=== PATIENT | female | born 1975 | race Caucasian/White ===

== ENCOUNTER 2020-11-21 18:28 | Emergency (ER) | payer SELFPAY ==
[~2020-11-21] VITALS: Ht 162.6 cm; Wt 118.0 kg
[2020-11-21] MEDS ORDERED: NITROGLYCERIN SUBLINGUAL 0.4 MG BOTTLE OF 25. SL PRN (18:45)
[2020-11-21 18:59] LABS: BASO # 0.1 x10^3/uL (0.0-0.2); BASO % 1 % (0-3); EOS # 0.5 x10^3/uL (0.0-0.7); EOS % 5 % (0-3); HEMATOCRIT 31.4 % (36.0-47.0); HEMOGLOBIN 10.3 g/dL (12.0-15.5); LYMPH # 2.7 x10^3/uL (1.0-4.8); LYMPH % 26 % (24-48); MEAN CORPUSCULAR HEMOGLOBIN 21 pg (25-35); MEAN CORPUSCULAR HGB CONC 33 g/dL (31-37); MEAN CORPUSCULAR VOLUME 65 fL (79-100); MONO # 0.7 x10^3/uL (0.0-1.1); MONO % 7 % (0-9); NEUT # 6.4 x10^3/uL (1.8-7.7); NEUT % 61 % (31-73); PLATELET COUNT 483 x10^3/uL (140-400); RED BLOOD COUNT 4.82 x10^6/uL (3.50-5.40); RED CELL DISTRIBUTION WIDTH 18.7 % (11.5-14.5); WHITE BLOOD COUNT 10.5 x10^3/uL (4.0-11.0)
--- NOTE | 2020-11-21 19:05 | PHYS DOC ---
Past Medical History Past Medical History: Hypertension (DEISY KANG SALES AND LEASING AGENT) Past Surgical History: (DEISY KANG SALES AND LEASING AGENT) General Adult EDM: Chief Complaint: HYPERTENSION HPI: HPI: Patient is a 45 year old female with a history of asthma who presents to the ED today complaining of elevated blood pressure, headache, chest pain, symptoms of been going on for 2 to 3 days. Patient describes the chest pain described as "discomfort" rates the pain at 6/10, denies anything specifically exacerbating or relieving her pain. Patient unable to to state which side of the chest is hurting. Patient states she took her friends 50 mg metoprolol around noon, she states her blood pressure did not come down she repeated another dose a couple minutes later. Patient denies this being the worst headache in her life. Denies any nausea, vomiting. She states she has some shortness of breath. Patient reports being a current smoker. She states she had Covid in August 2020 (DEISY KANG SALES AND LEASING AGENT) Review of Systems: Review of Systems: Constitutional: Denies fever or chills. [] Eyes: Denies change in visual acuity. [] HENT: Denies nasal congestion or sore throat. [] Respiratory: Reports shortness of breath, denies coughing Cardiovascular: Denies chest pain or edema. [] GI: Denies abdominal pain, nausea, vomiting, bloody stools or diarrhea. [] : Denies dysuria. [] Musculoskeletal: Denies back pain or joint pain. [] Integument: Denies rash. [] Neurologic: Reports headache, denies reports elevated blood pressure. Focal weakness or sensory changes. [] Psychiatric: Denies depression or anxiety. [] (DEISY KANG SALES AND LEASING AGENT) Heart Score: C/O Chest Pain: Yes HEART Score for Chest Pain: HEART Score for Chest Pain Response (Comments) Value History Slighlty/Non-Suspicious 0 ECG Normal 0 Risk Factors 1 or 2 Risk Factors 1 Troponin < Normal Limit 0 Total 1 Risk Factors: Risk Factors: DM, Current or recent (<one month) smoker, HTN, HLP, family history of CAD, obesity. Risk Scores: Score 0 - 3: 2.5% MACE over next 6 weeks - Discharge Home Score 4 - 6: 20.3% MACE over next 6 weeks - Admit for Clinical Observation Score 7 - 10: 72.7% MACE over next 6 weeks - Early Invasive Strategies (DEISY KANG Thomas SALES AND LEASING AGENT) Current Medications: Current Medications Medications (Trade) Dose Ordered Sig/Lavern Start Time Stop Time Status Last Admin Dose Admin Acetaminophen (Tylenol) 1,000 mg 1X ONCE 11/21/20 18:45 11/21/20 18:46 UNV Aspirin (Byron Aspirin) 325 mg 1X ONCE 11/21/20 18:45 11/21/20 18:46 UNV Clonidine HCl (Catapres) 0.2 mg 1X ONCE 11/21/20 18:45 11/21/20 18:46 UNV Nitroglycerin (Nitrostat) 0.4 mg PRN Q5MIN PRN 11/21/20 18:45 11/22/20 18:44 UNV (DEISY KANG SALES AND LEASING AGENT) Allergies: Allergies: Allergies Coded Allergies Type Severity Reaction Last Updated Verified No Known Drug Allergies 11/21/20 No (DEISY KANG SALES AND LEASING AGENT) Physical Exam: PE: Constitutional: Well developed, well nourished, no acute distress, non-toxic appearance. [] HENT: Normocephalic, atraumatic, bilateral external ears normal, oropharynx moist, no oral exudates, nose normal. [] Eyes: PERRLA, EOMI, conjunctiva normal, no discharge. [] Neck: Normal range of motion, no tenderness, supple, no stridor. [] Cardiovascular:Heart rate regular rhythm, no murmur [] Lungs & Thorax: Bilateral breath sounds clear to auscultation [] Abdomen: Bowel sounds normal, soft, no tenderness, no masses, no pulsatile masses. [] Skin: Warm, dry, no erythema, no rash. [] Back: No tenderness, no CVA tenderness. [] Extremities: No tenderness, no cyanosis, no clubbing, ROM intact, no edema. [] Neurologic: Alert and oriented X 3, normal motor function, normal sensory functi on, no focal deficits noted. Cranial nerves II through XII intact Psychologic: Affect normal, judgement normal, mood normal. [] (DEISY KANG SALES AND LEASING AGENT) Current Patient Data: Labs: Laboratory Tests Test 11/21/20 18:45 White Blood Count 10.5 x10^3/uL (4.0-11.0) Red Blood Count 4.82 x10^6/uL (3.50-5.40) Hemoglobin 10.3 g/dL (12.0-15.5) L Hematocrit 31.4 % (36.0-47.0) L Mean Corpuscular Volume 65 fL (79-100) L Mean Corpuscular Hemoglobin 21 pg (25-35) L Mean Corpuscular Hemoglobin Concent 33 g/dL (31-37) Red Cell Distribution Width 18.7 % (11.5-14.5) H Platelet Count 483 x10^3/uL (140-400) H Neutrophils (%) (Auto) 61 % (31-73) Lymphocytes (%) (Auto) 26 % (24-48) Monocytes (%) (Auto) 7 % (0-9) Eosinophils (%) (Auto) 5 % (0-3) H Basophils (%) (Auto) 1 % (0-3) Neutrophils # (Auto) 6.4 x10^3/uL (1.8-7.7) Lymphocytes # (Auto) 2.7 x10^3/uL (1.0-4.8) Monocytes # (Auto) 0.7 x10^3/uL (0.0-1.1) Eosinophils # (Auto) 0.5 x10^3/uL (0.0-0.7) Basophils # (Auto) 0.1 x10^3/uL (0.0-0.2) Laboratory Tests 11/21/20 18:45 Vital Signs: Vital Signs Date Time Temp Pulse Resp B/P (MAP) Pulse Ox O2 Delivery O2 Flow Rate FiO2 11/21/20 18:30 98.6 83 20 190/82 99 Room Air 98.6 (DEISY KANG SALES AND LEASING AGENT) EKG: EK interpreted by Dr. Ross sinus rhythm heart rate 85 no STEMI [] (DEISY KANG [facility]) Radiology/Procedures: Radiology/Procedures: []PROCEDURE: CT HEAD WO CONTRAST Exam Date: 11/21/2020 7:[address] HEAD/BRAIN WO Indication: Reason: head, elevated bp / Spl. Instructions: / History: . TECHNIQUE: Head CT was performed without intravenous contrast. One or more of the following dose reduction techniques were utilized: *Automated exposure control (AEC) *Adjustment of mA and/or kV according to patient size *Use of iterative reconstruction technique *CT scan done according to ALARA, or ALARA/IMAGE GENTLY FINDINGS: The ventricles and sulci are normal for the patient's stated age. There is no evidence of acute intracranial hemorrhage, extra-axial collection, mass effect, midline shift, or acute territorial infarct. No lesion of the skull base or the calvarium is seen. The visualized paranasal sinuses, mastoid air cells and orbits are normal in appearance. IMPRESSION: No evidence for acute intracranial abnormality. Electronically signed by: Donald Diaz MD (11/21/2020 7:17 PM) [facility] DICTATED and SIGNED BY: DONALD DIAZ MD DATE: 11/21/[id number] 0 PROCEDURE: PORTABLE CHEST 1V Exam: Chest one view INDICATION: Hypertension TECHNIQUE: Frontal view of the chest Comparisons: None FINDINGS: Heart is mildly enlarged. Pulmonary vessels are within normal limits. The lung and pleural spaces are clear. IMPRESSION: No acute cardiopulmonary process. Electronically signed by: Izzy Paul MD (11/21/2020 7:13 PM) [facility] DICTATED and SIGNED BY: IZZY PAUL MD DATE: 11/21/[id number] 0 (DEISY KANG APRN) Course & Med Decision Making: Course & Med Decision Making Pertinent Labs and Imaging studies reviewed. (See chart for details) This is a 45-year-old female patient presenting today complaining of elevated blood pressure, headache, shortness of breath, chest pain, symptoms for 2 to 3 days. Blood pressure on arrival to the ED is 190/82 with a heart rate in the 80s. O2 sats 99% on room air. CBC with no acute findings, CMP with normal creatinine, normal BUN otherwise nothing really acute. Chest x-ray is negative, EKG is negative. Urine analysis negative for protein, urine contaminated with squamous cells epithelium Patient was given clonidine on arrival to the ED, blood pressure has come down to 132/63 with a heart rate of 71. Patient desires to go home, she states she has no medical insurance to be in the hospital. Spoke with Dr. Shepherd She was discharged to home with amlodipine. She will follow-up with [facility] and through the clinic by her choice (DEISY KANG APRN) Chaz Disclaimer: Chaz Disclaimer: This electronic medical record was generated, in whole or in part, using a voice recognition dictation system. (DEISY KANG APRN) Departure Departure Impression: Primary Impression: Hypertension Qualified Codes: I10 - Essential (primary) hypertension Disposition: HOME / SELF CARE / HOMELESS Condition: STABLE Patient Instructions: Hypertension Additional Instructions: You were evaluated in the emergency room for high blood pressure. We started you on blood pressure medicines. Take them as prescribed. Try to exercise and lose weight. Take Tylenol as needed for headaches. Watch what you eat, avoid salty foods, fatty foods, fried foods. Consider a going on a DASH diet. Follow-up with [facility] [id number] Scripts Amlodipine Besylate (AMLODIPINE BESYLATE) 10 Mg Tablet 10 MG PO DAILY, #30 TAB Prov: DEISY KANG APRN 11/21/20 Attending Signature Attending Signature I have reviewed the PA/LEARNING AND DEVELOPMENT SPECIALIST's note and plan of care. I was available for consultation as needed during the patient's visit in the emergency department. I agree with the clinical impression, plan, and disposition. (ANDRES ROSS DO) DEISY KANG APRN Nov 21, 2020 19:05 ANDRES ROSS DO Nov 21, 2020 22:18
[2020-11-21 19:10] LABS: CALCIUM 8.2 mg/dL (8.5-10.1); GFR 60.5; POTASSIUM 4.1 mmol/L (3.5-5.1)
[2020-11-21] MEDS ORDERED: ACETAMINOPHEN 500 MG TABLET PO ONE (19:15)
[2020-11-21] MEDS ORDERED: ASPIRIN 325 MG TABLET PO ONE (19:15)
[2020-11-21] MEDS ORDERED: cloNIDine HCL 0.1 MG TABLET PO ONE (19:15)
--- NOTE | 2020-11-21 19:15 | RAD ---
Exam: Chest one view INDICATION: Hypertension TECHNIQUE: Frontal view of the chest Comparisons: None FINDINGS: Heart is mildly enlarged. Pulmonary vessels are within normal limits. The lung and pleural spaces are clear. IMPRESSION: No acute cardiopulmonary process. Electronically signed by: Izzy Parra MD (11/21/2020 7:13 PM) [place]
[2020-11-21 19:16] LABS: ALBUMIN 3.2 g/dL (3.4-5.0); ALBUMIN/GLOBULIN RATIO 0.8 (1.0-1.7); TOTAL BILIRUBIN 0.2 mg/dL (0.2-1.0); TOTAL PROTEIN 7.1 g/dL (6.4-8.2)
--- NOTE | 2020-11-21 19:19 | RAD ---
Exam Date: 11/21/2020 7:[address] HEAD/BRAIN WO Indication: Reason: head, elevated bp / Spl. Instructions: / History: . TECHNIQUE: Head CT was performed without intravenous contrast. One or more of the following dose re duction techniques were utilized: *Automated exposure control (AEC) *Adjustment of mA and/or kV according to patient size *Use of iterative reconstruction technique *CT scan done according to ALARA, or ALARA/IMAGE GENTLY FINDINGS: The ventricles and sulci are normal for the patient's stated age. There is no evidence of acute int racranial hemorrhage, extra-axial collection, mass effect, midline shift, or acute territorial infarc t. No lesion of the skull base or the calvarium is seen. The visualized paranasal sinuses, mastoid ai r cells and orbits are normal in appearance. IMPRESSION: No evidence for acute intracranial abnormality. Electronically signed by: Ruben Diaz MD (11/21/2020 7:17 PM) [facility]
[2020-11-21 19:29] LABS: PLT ESTIMATE INCREASED (ADEQUATE)
[2020-11-21 19:30] LABS: HYPOCHROMIA MOD; MICROCYTOSIS MARKED; POLYCHROMASIA SLIGHT
[2020-11-21 19:37] LABS: BILIRUBIN,URINE NEGATIVE (NEG); CLARITY,URINE CLEAR; COLOR,URINE YELLOW; NITRITE,URINE NEGATIVE (NEG); PH,URINE 7.5 (<5.0-8.0); PROTEIN,URINE NEGATIVE (NEG-TRACE); UROBILINOGEN,URINE 0.2 mg/dL (0.2 mg/dL)
[2020-11-21 19:45] LABS: BARBITURATES NEG (NEG); BENZODIAZEPINES NEG (NEG); CANNABINOIDS NEG (NEG); COCAINE NEG (NEG); METHADONE NEG (NEG); OPIATES NEG (NEG); PHENCYCLIDINE NEG (NEG)
[2020-11-21 19:48] LABS: AMPHETAMINE/METHAMPHETAMINE NEG (NEG)
[2020-11-21 19:50] LABS: BACTERIA,URINE FEW /HPF (0-FEW); RBC,URINE 0 /HPF (0-2)
[2020-11-21 20:31] VITALS: BP 133/63
[2020-11-21] MEDS ORDERED: AMLO-187 PO (20:41)
--- NOTE | 2020-11-23 00:51 | EKG ---
[facility] [address] [place] [address] Test Date: 2020-11-21 Test Time: 18:37:04 Pat Name: TONY SWEET Department: Room: Gender: F Bracelet And Brooch Maker: : 1975 Requested By: DEISY KANG Order Number: [id number] Reading MD: Measurements Intervals [place] Rate: 85 P: 63 [place]: 172 QRS: -21 QRSD: 82 T: 97 QT: 386 QTc: 460 Interpretive Statements SINUS RHYTHM LEFT ATRIAL ABNORMALITY LEFTWARD AXIS T ABNORMALITY IN HIGH LATERAL LEADS ABNORMAL ECG RI6.02 No previous ECG available for comparison
== END 2020-11-21 20:40 | disposition home or self-care (01) ==
LOC: ER 18:28
DX: I10 Essential (primary) hypertension (principal); R51.9 Headache, unspecified; R07.89 Other chest pain; J45.909 Unspecified asthma, uncomplicated
CPT/HCPCS: 36415; 70450; 71045; 80053; 80307; 81001; 83735; 83880; 84484; 85025; 87086; 93005; 99285-25

== ENCOUNTER 2021-01-11 17:44 | Emergency (ER) | payer SELFPAY ==
[~2021-01-11] VITALS: Ht 162.6 cm; Wt 118.0 kg
[~2021-01-11 17:44] MED LIST: AMLO-187 PO
[2021-01-11 21:02] LABS: BASO # 0.1 x10^3/uL (0.0-0.2); BASO % 1 % (0-3); EOS # 0.4 x10^3/uL (0.0-0.7); EOS % 5 % (0-3); HEMATOCRIT 28.1 % (36.0-47.0); HEMOGLOBIN 9.1 g/dL (12.0-15.5); LYMPH # 2.5 x10^3/uL (1.0-4.8); LYMPH % 32 % (24-48); MEAN CORPUSCULAR HEMOGLOBIN 23 pg (25-35); MEAN CORPUSCULAR HGB CONC 32 g/dL (31-37); MEAN CORPUSCULAR VOLUME 71 fL (79-100); MONO # 0.6 x10^3/uL (0.0-1.1); MONO % 8 % (0-9); NEUT # 4.2 x10^3/uL (1.8-7.7); NEUT % 54 % (31-73); PLATELET COUNT 536 x10^3/uL (140-400); RED BLOOD COUNT 3.99 x10^6/uL (3.50-5.40); RED CELL DISTRIBUTION WIDTH 22.2 % (11.5-14.5); WHITE BLOOD COUNT 7.8 x10^3/uL (4.0-11.0)
[2021-01-11 21:11] LABS: CALCIUM 8.1 mg/dL (8.5-10.1); CREATININE 0.8 mg/dL (0.6-1.0); GFR 78.3; POTASSIUM 4.1 mmol/L (3.5-5.1)
[2021-01-11 21:18] LABS: ALBUMIN 3.2 g/dL (3.4-5.0); ALBUMIN/GLOBULIN RATIO 0.8 (1.0-1.7); TOTAL BILIRUBIN 0.2 mg/dL (0.2-1.0)
[2021-01-11 21:39] LABS: ANISOCYTOSIS MOD; HYPOCHROMIA MOD; MICROCYTOSIS MOD; PLT ESTIMATE INCREASED (ADEQUATE); POIKILOCYTOSIS SLIGHT
--- NOTE | 2021-01-11 21:51 | PHYS DOC ---
Past Medical History Past Medical History: Anemia, Hypertension, Hypothyroid Additional Past Medical Histor: HEAVY BLEEDING (GAYE CLARK) Past Surgical History: No Surgical History, (GAYE CLARK) Smoking Status: Current Every Day Smoker Alcohol Use: None (GAYE CLARK) General Adult EDM: Chief Complaint: VAGINAL BLEEDING HPI: HPI: Patient is a 45 year old female who presents with vaginal bleeding for the past 4 weeks. Patient states she was seen here 1 month ago for elevated blood pressure. The day after, she began having heavy vaginal bleeding. It has been much worse in the last week. She states that in the past 4 to 5 days, she has gone through a full pack of bladder control pull-ups, Approximately 45. She states she is also been through 30 pads just today. Patient reports associated myalgias and pelvic cramping 10/27. She reports she has had similar symptoms in the past, at which time she was determined to be hypothyroid. She states she has not had any levothyroxine for "a long time." Patient denies chance of . Patient has no other complaints at this time. (GAYE CLARK) Review of Systems: Review of Systems: 12 systems reviewed. ROS negative except as mentioned in HPI. (GAYE CLARK) Heart Score: C/O Chest Pain: No (GAYE CLARK) Current Medications: Current Medications Medications (Trade) Dose Ordered Sig/Lavern Start Time Stop Time Status Last Admin Dose Admin Tramadol HCl (Ultram) 50 mg 1X ONCE 01/11/21 21:45 01/11/21 21:46 UNV (GAYE CLARK) Allergies: Allergies: Allergies Coded Allergies Type Severity Reaction Last Updated Verified No Known Drug Allergies 11/21/20 No (GAYE CLARK) Physical Exam: PE: Constitutional: Well developed, well nourished, no acute distress, non-toxic appearance. [] HENT: Normocephalic, atraumatic, bilateral external ears normal, oropharynx moist, no oral exudates, nose normal. [] Eyes: PERRLA, EOMI, conjunctiva normal, no discharge. [] Neck: Normal range of motion, no tenderness, supple, no stridor. [] Cardiovascular:Heart rate regular rhythm, no murmur [] Lungs & Thorax: Bilateral breath sounds clear to auscultation [] Abdomen: Bowel sounds normal, soft, no tenderness, no masses, no pulsatile masses. [] Skin: Warm, dry, no erythema, no rash. [] Back: No tenderness, no CVA tenderness. [] Extremities: No tenderness, no cyanosis, no clubbing, ROM intact, no edema. [] Neurologic: Alert and oriented X 3, normal motor function, normal sensory function, no focal deficits noted. [] Psychologic: Affect normal, judgement normal, mood normal. [] (GAYE CLARK) Current Patient Data: Labs: Laboratory Tests Test 01/11/21 20:14 01/11/21 20:54 POC Urine HCG, Qualitative Hcg negative (Negative) White Blood Count 7.8 x10^3/uL (4.0-11.0) Red Blood Count 3.99 x10^6/uL (3.50-5.40) Hemoglobin 9.1 g/dL (12.0-15.5) L Hematocrit 28.1 % (36.0-47.0) L Mean Corpuscular Volume 71 fL (79-100) L Mean Corpuscular Hemoglobin 23 pg (25-35) L Mean Corpuscular Hemoglobin Concent 32 g/dL (31-37) Red Cell Distribution Width 22.2 % (11.5-14.5) H Platelet Count 536 x10^3/uL (140-400) H Neutrophils (%) (Auto) 54 % (31-73) Lymphocytes (%) (Auto) 32 % (24-48) Monocytes (%) (Auto) 8 % (0-9) Eosinophils (%) (Auto) 5 % (0-3) H Basophils (%) (Auto) 1 % (0-3) Neutrophils # (Auto) 4.2 x10^3/uL (1.8-7.7) Lymphocytes # (Auto) 2.5 x10^3/uL (1.0-4.8) Monocytes # (Auto) 0.6 x10^3/uL (0.0-1.1) Eosinophils # (Auto) 0.4 x10^3/uL (0.0-0.7) Basophils # (Auto) 0.1 x10^3/uL (0.0-0.2) Platelet Estimate Pending Sodium Level 136 mmol/L (136-145) Potassium Level 4.1 mmol/L (3.5-5.1) Chloride Level 101 mmol/L (98-107) Carbon Dioxide Level 28 mmol/L (21-32) Anion Gap 7 (6-14) Blood Urea Nitrogen 14 mg/dL (7-20) Creatinine 0.8 mg/dL (0.6-1.0) Estimated GFR (Cockcroft-Gault) 78.3 BUN/Creatinine Ratio 18 (6-20) Glucose Level 218 mg/dL (70-99) H Calcium Level 8.1 mg/dL (8.5-10.1) L Total Bilirubin 0.2 mg/dL (0.2-1.0) Aspartate Amino Transferase (AST) 26 U/L (15-37) Alanine Aminotransferase (ALT) 23 U/L (14-59) Alkaline Phosphatase 99 U/L (46-116) Total Protein 7.0 g/dL (6.4-8.2) Albumin 3.2 g/dL (3.4-5.0) L Albumin/Globulin Ratio 0.8 (1.0-1.7) L Laboratory Tests 01/11/21 20:54 Laboratory Tests 01/11/21 20:54 Vital Signs: Vital Signs Date Time Temp Pulse Resp B/P (MAP) Pulse Ox O2 Delivery O2 Flow Rate FiO2 01/11/21 20:28 86 20 150/79 (102) 97 Room Air 01/11/21 19:50 98.6 98.6 (GAYE CLARK) Course & Med Decision Making: Course & Med Decision Making Pertinent Labs and Imaging studies reviewed. (See chart for details) Patient requests a prescription for levothyroxine, as that is what helped improve her vaginal bleeding in the past. She also reveals she has a history of anemia. Discussed with the patient that levothyroxine is not a medication that is prescribed by emergency medicine providers, and that she would need to be seen by primary care in order to obtain a prescription. Discussed that a p rescription for levothyroxine requires frequent blood draws and hormone level checks to ensure that it is in a therapeutic level. I informed the patient that I could treat her pain, but that she needs evaluation by director inbound sales to determine etiology and treatment for her vaginal bleeding. She denies both pain medication and further work-up in the department. Patient has not yet sought follow-up regarding her elevated blood pressure that she was seen for on her last visit. Discussed with the patient the risks to uncontrolled high blood pressure. Reiterated need for primary care. Patient understands and is agreeable to discharge plan. (GAYE CLARK) Course & Med Decision Making I discussed this patient's presentation with my PA and recommended transvaginal ultrasound to assess for causes of bleeding and [facility] consultation. My PA informed me the patient is refusing any further investigation into her causes of menorrhagia. Patient's H&H is stable-has dropped 0.8 in 1.5 months. Patient with no exertional dyspnea, neurologic deficits or syncope. (SUNG PATEL DO) Dragon Disclaimer: Dragon Disclaimer: This electronic medical record was generated, in whole or in part, using a voice recognition dictation system. (GAYE CLARK) Departure Departure Impression: Primary Impression: Abnormal uterine and vaginal bleeding, unspecified Additional Impressions: Elevated blood pressure reading Anemia Qualified Codes: D64.9 - Anemia, unspecified Disposition: HOME / SELF CARE / HOMELESS Condition: STABLE Referrals: NO PCP (PCP) Patient Instructions: Abnormal Uterine Bleeding, Anemia, Nonspecific-Brief Additional Instructions: As discussed, you should obtain primary care and gynecology follow-up as soon as possible. A pamphlet was provided to you today with providers associated with [facility]. Additionally, listed below is the contact information for [facility]. Please return to the emergency department if your symptoms worsen. [facility] Get online care: [email or web address] Address: [address] [place] [address] GAYE CLARK Jan 11, 2021 21:50 SUNG PATEL DO Jan 12, 2021 01:41
[2021-01-11 21:58] VITALS: BP 162/97
[2021-01-11] MEDS ORDERED: traMADol 50 MG TABLET PO ONE (22:00)
== END 2021-01-11 21:55 | disposition home or self-care (01) ==
LOC: ER 17:44
DX: N93.9 Abnormal uterine and vaginal bleeding, unspecified (principal); D64.9 Anemia, unspecified; R03.0 Elevated blood-pressure reading, without diagnosis of hypertension; I10 Essential (primary) hypertension; E03.9 Hypothyroidism, unspecified; F17.200 Nicotine dependence, unspecified, uncomplicated
CPT/HCPCS: 36415; 80053; 81025; 85025; 86850; 86900; 86901; 99285-25